=== PATIENT | male | born 2005 | race Caucasian/White ===

== ENCOUNTER 2023-04-15 09:59 | Emergency (ER) | payer OTHER, SELFPAY ==
[2023-04-15 10:02] VITALS: BP 116/77; BMI 18.7
[2023-04-15 10:40] LABS: % Basophils 0.4 % (0-2); % Eosinophils 0.4 % (0-6); % Immature Granulocytes 0.2 % (0-0.5); % Lymphocytes 25.2 % (20.5-51.1); % Monocytes 7.1 % (1.7-9.3); % Neutrophils 66.7 % (42.2-75.2); Absolute Lymphocytes 1.4 10^3/uL (1.2-3.4); Absolute Monocytes 0.4 10^3/uL (0.1-0.6); Absolute Neutrophils 3.7 10^3/uL (1.4-6.5); Hemoglobin 13.5 g/dL (13.0-18.0); Mean Corp Hgb Conc. 36.5 g/dL (33.0-37.0); Mean Corpuscular Hgb 30.3 pg (27.0-31.0); Mean Corpuscular Volume 83.1 fL (80.0-94.0); Mean Platelet Volume 8.8 fL (7.4-10.4); Nucleated Red Blood Cells % 0 % (-); Platelet Count 249 10^3/uL (130-400); Red Blood Cell Count 4.45 10^6/uL (4.70-6.10); Red Cell Dist. Width 12.9 % (11.5-14.5); White Blood Cell Count 5.6 10^3/uL (4.8-10.8)
--- NOTE | 2023-04-15 10:44 | EDRN ---
this rn spoke with [facility] RN regarding pts med administration. per [facility] RN she states pt got to them on 04/13 and they had to order his meds. He started getting his meds 04/14.
04/14/231999 pt received 600 mg oxcarbazepine, 2x 20mg tab Onfi, and 3x 10mg tab Onfi.
04/15/23 0800 pt received 600 mg oxcarbazepine, and at 0930 pt received 2mg IM Ativan for his seizure activity.
--- NOTE | 2023-04-15 10:55 | ED.GENMED ---
History of Present Illness
<Judy Lopez PRESIDENT & FOUNDER - Last Filed: 04/15/23 17:30>
General
Chief Complaint: Seizure
Source: patient, records and ambulance crew
Exam Limitations: none
Time Seen by Provider: 04/15/23 10:01
Nursing documentation reviewed up to this point in time: agreed with
Travel History
Have you had any contact with someone who has COVID-19?: No
Do you have any symptoms of coronavirus? Fever > 100 degrees, chills, cough, shortness of breath, sore throat, loss of taste or smell, muscle aches, or headache?: No
History of Present Illness
History of Present Illness:
17-year-old male presents from [facility] where he was incarcerated for the past 2 days. He was found on the floor at 9:25 this morning with seizure activity, [facility] staff gave Ativan 2 mg IM 9:25. He had another seizure en route in the ambulance and
was given He states he has not been getting his seizure medication since incarceration 2 days ago. Medical staff at the [facility] state he got oxcarbazepine 600 mg last night. After first seizure this a.m. he came around enough where he could get
another dose Oxcabazepine 600 mg. Was also given Clobazam 20 mg x 2 and then 10 mg x 3 tabs total 70 mg.
[facility] gave
Past History
<Judy Lopez PRESIDENT & FOUNDER - Last Filed: 04/15/23 17:30>
Past History
ED Past Medical History: Seizures
ED Past Surgical History: Appendectomy and Other (Hernia repair)
Social History
Personal: Single
Living: [facility]
Review of Systems
<Judy Lopez, PRESIDENT & FOUNDER - Last Filed: 04/15/23 17:30>
Review of Systems
Allergies reviewed?: Yes
All Other Systems: ROS reviewed and negative except as documented in HPI and ROS
Constitutional: Reports fatigue; Denies fever
EENT: Denies sore throat
Respiratory: Denies trouble breathing
Cardiac: Denies chest pain or syncope
ABD/GI: Denies abdominal pain, nausea, vomiting, diarrhea or anorexia
: Denies dysuria
Musculoskeletal: Reports no symptoms
Skin: Reports no symptoms
Neurological: Reports other (Seizure activity prior to arrival); Denies dizzy, headache, weakness or numbness
Psychiatric: Reports anxiety
Phy Exam
<Judy Lopez, PRESIDENT & FOUNDER - Last Filed: 04/15/23 17:30>
Physical Exam
Physical Exam:
GENERAL: No acute distress. A&Ox3.
CONSTITUTIONAL: Afebrile.
EYES: PERRL, conjunctivae normal
Neck: Supple
ENMT: moist mucus membranes, Pharynx nl, no intraoral trauma
RESPIRATORY: Regular respirations, nonlabored, lungs clear.
CARDIOVASCULAR: Regular rate and rhythm, no murmurs, no rubs.
GI: Soft, nontender, normal BS
MUSCULOSKELETAL: Moves with ease. Well perfused.
SKIN: Warm, dry, pink
PSYCH: Normal mood and affect. Well kept, interactive and appropriate
NEUROLOGIC: Awake, alert and oriented. No focal neurological deficits
Course
<Judy Lopez, PRESIDENT & FOUNDER - Last Filed: 04/15/23 17:30>
Orders/Labs/Results
Orders:
Orders
04/15/23 10:31
Oxcarbazepine [Trileptal] 600 mg PO NOW STA
04/15/23 10:34
Complete Blood Count/With Diff Urgent
Comprehensive Metabolic Panel Urgent
04/15/23 11:12
Lorazepam [Ativan] 2 mg .ROUTE .STK-MED ONE
04/15/23 11:19
Lorazepam [Ativan] 1 mg IV NOW STA
Abnormal Lab Results
04/15/23
10:34
RBC 4.45 L 10^6/uL
(4.70-6.10)
Hct 37.0 L %
(39.0-52.0)
Sodium 134 L mmol/L
(135-145)
Creatinine 0.6 L mg/dL
(0.7-1.3)
04/15/23 10:34
04/15/23 10:34
Vital Signs
Initial and Last Documented VS:
Initial Vital Signs
Pulse Resp BP Pulse Ox
70 16 116/77 97
04/15/23 10:02 04/15/23 10:02 04/15/23 10:02 04/15/23 10:02
Last Documented Vital Signs
Temp Pulse Resp BP Pulse Ox
98.8 F 100 16 126/75 98
04/15/23 10:09 04/15/23 12:00 04/15/23 12:00 04/15/23 11:17 04/15/23 11:45
<Reji Pearson, DO - Last Filed: 04/15/23 12:05>
Orders/Labs/Results
Orders:
Orders
04/15/23 10:31
Oxcarbazepine [Trileptal] 600 mg PO NOW STA
04/15/23 10:34
Complete Blood Count/With Diff Urgent
Comprehensive Metabolic Panel Urgent
04/15/23 11:12
Lorazepam [Ativan] 2 mg .ROUTE .STK-MED ONE
04/15/23 11:19
Lorazepam [Ativan] 1 mg IV NOW STA
Abnormal Lab Results
04/15/23
10:34
RBC 4.45 L 10^6/uL
(4.70-6.10)
Hct 37.0 L %
(39.0-52.0)
Sodium 134 L mmol/L
(135-145)
Creatinine 0.6 L mg/dL
(0.7-1.3)
04/15/23 10:34
04/15/23 10:34
Vital Signs
Initial and Last Documented VS:
Initial Vital Signs
Pulse Resp BP Pulse Ox
70 16 116/77 97
04/15/23 10:02 04/15/23 10:02 04/15/23 10:02 04/15/23 10:02
Last Documented Vital Signs
Temp Pulse Resp BP Pulse Ox
98.8 F 100 16 126/75 98
04/15/23 10:09 04/15/23 12:00 04/15/23 12:00 04/15/23 11:17 04/15/23 11:45
<Judy Lopez, PRESIDENT & FOUNDER - Last Filed: 04/15/23 17:30>
MDM/Problems Addressed
Differential Diagnosis Includes:
Seizure due to missing seizure medications
MDM/Problems Addressed:
17-year-old male presents from [facility] where he was incarcerated for the past 2 days. He was found on the floor at 9:25 this morning with seizure activity, [facility] staff gave Ativan 2 mg IM 9:25. He had another seizure en route in the ambulance and
was given He states he has not been getting his seizure medication since incarceration 2 days ago. Medical staff at the [facility] state he got oxcarbazepine 600 mg last night. After first seizure this a.m. he came around enough where he could get
another dose Oxcabazepine 600 mg. Was also given Clobazam 20 mg x 2 and then 10 mg x 3 tabs total 70 mg.
[facility] gave Versed 5 mg for seizure activity
No post ictal state, pt awake and communicating well.
04/15/2023 1109 AM
CBC with no clinically significant abnormality
CMP unremarkable
At patient's request I contacted his mother and informed her that he was here. She states he MUST get his seizure medications every 12 hours as he has a very low threshold for seizures
This has been communicated to the [facility] staff
Pt missed one day of his meds, started back last p.m. as usual.
04/15/2023 1115 PM
Called to room by ice guard tester as patient having seizure-like activity
Arrived to room immediately, patient with general shaking of arms and legs, he is speaking to me the entire time saying 'I do not know what is going on,' his eyes are deviated to the right side times, he is alert and communicating, wrenching his
neck in different directions, this is clearly not an epileptic seizure, pt extremely anxious, admittedly. I was able to calm him down some by talking to him, Ativan ordered which helped.
04/15/[address] Pearsno in to evaluate, no further seizure-like activity, Dr. Pearson agrees this is mostly psychogenic not epileptic seizure activity. Patient had no postictal state
Chronic conditions affecting care: Neurological disorder (epilepsy)
<Judy Lopez PRESIDENT & FOUNDER - Last Filed: 04/15/23 17:30>
*Critical Care Note
Total Time (30-74mins, 75-104mins- exclusive of procedures): Not Applicable
ED Attending Note
<Judy Lopez PRESIDENT & FOUNDER - Last Filed: 04/15/23 17:30>
-
Portions of this chart may have been created with voice recognition software.� Occasional wrong word or��sound alike� substitutions may have occurred due to the inherent limitations of voice recognition software.
<Reji Pearson DO - Last Filed: 04/15/23 12:05>
ED Attending Note
Patient seen and examined by attending physician: Yes
I performed the substantive portion of visit, reviewed & personally made and approve the management plan that is documented in note by myself or LUIS.: Yes
ED Attending Note:
17-year-old male who presents for evaluation of seizure. Patient does report history of seizures and epilepsy. He is recently picked up on a warrant and is in [facility]. He is hoping to not be in their long pending his evaluation by
his learning officer. The patient during exam starts shaking all over the place while awake and talking. Clearly nonepileptic. Exam: Awake and alert, nonfocal motor exam, severely anxious and nervous about being in [facility]. Assessment and plan: On
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 Suspect related to anxiety of being in [facility]. He did miss a dose of his meds but now back on his medications. Okay for discharge
Discharge Plan
Departure
Patient Disposition: [facility]
Date of Disposition: 04/15/23
Time of Disposition: 12:21
Condition: Fair
Discharge Problem:
Epilepsy, Anxiety, Psychogenic nonepileptic seizure
Instructions: Seizures, Adult (DC), Anxiety, Adult ED, Panic Attack ED
Prescriptions:
No Action
ibuprofen 600 MG tablet
600 mg PO Q6HPRN PRN (Reason: pain) Qty: 20 0RF
Referrals:
[facility] [Family Provider] -
Activity Restrictions/Additional Instructions:
As we discussed, Srinath had no Epileptic seizure here. He did have episodes of body shaking, eyes rolling, significant anxiety, arms and legs shaking that were Psychogenic, not Epileptic seizures.
Continue seizure medications religiously every 12 hours as prescribed as mom states he has a very low seizure threshold.
I notified his mom he was here.
Interventions
Interventions:
*Risk Screen - Suicide Last Done: 04/15/23 10:02
*General Assessment Last Done: 04/15/23 10:02
*Neglect/Abuse Screening Last Done: 04/15/23 10:02
ED- Fall Risk Assessment Last Done: 04/15/23 12:29
*ED COVID-19 Vaccine History Last Done: 04/15/23 10:02
*Nursing Disposition Last Done: 04/15/23 12:29
ED- Cardiac Assessment Last Done: 04/15/23 10:02
ED- Neurological Assessment Last Done: 04/15/23 10:02
ED- Pulmonary Assessment Last Done: 04/15/23 10:02
Discharge Date and Time
Discharge Date/Time: 04/15/23 12:30
[2023-04-15 11:00] LABS: ALT (SGPT) 15 U/L (0-50); AST (SGOT) 31 U/L (17-59); Albumin 4.5 g/dl (3.5-5.0); Alkaline Phosphatase 68 U/L (38-126); Blood Urea Nitrogen 12 mg/dl (9-20); Calcium 9.5 mg/dl (8.4-10.2); Carbon Dioxide 26 mmol/L (22-30); Chloride 98 mmol/L (98-107); Estimated Creatinine Clearance > 125 ml/min; Glucose 96 mg/dl (70-99); Potassium 3.9 mmol/L (3.5-5.1); Sodium 134 mmol/L (135-145); Total Bilirubin 0.8 mg/dl (0.2-1.3); Total Protein 7.8 g/dl (6.3-8.2); eGFR > 60.00
[2023-04-15 11:17] VITALS: BP 126/75
[2023-04-15] MEDS: ATIVAN 1 MG IV (11:19)
== END 2023-04-15 12:30 ==
LOC: EMR 09:59
PROVIDERS: Registered Nurse; EMERGENCY PHYSICIAN Emergency Medicine
DX: G40.909 Epilepsy, unspecified, not intractable, without status epilepticus (principal); F41.9 Anxiety disorder, unspecified
CPT/HCPCS: 99284; 96374; 80053; 85025